=== PATIENT | female | born 1995 | race Hispanic/Latino ===

== ENCOUNTER 2021-04-04 09:18 | Emergency (ER) | payer MEDICAID, SELFPAY ==
--- NOTE | ~2021-04-04 | US_ITS ---
EXAMINATION: US OB <= 14 weeks fetus DATE: 04/04/2021 11:45 INDICATION: Vaginal bleeding in . First trimester. TECHNIQUE: Real-time transabdominal and transvaginal pelvic ultrasound was performed. COMPARISON: None. FINDINGS: TRANSABDOMINAL ULTRASOUND: The uterus measures 11.5 x 4.4 x 5.8 cm. TRANSVAGINAL ULTRASOUND: There is an intrauterine gestational sac. A yolk sac is identified. The fet al crown rump length measures 7 mm, which correlates with an estimated gestational age of 6 weeks and 4 day(s) (+/-) 4 day(s). heart motion is identified measuring 120 beats per minute (bpm) by M- mode Doppler. There is a small subchorionic hematoma measuring 1.3 x 0.5 x 0.8 cm. The right ovary me asures 2.5 x 2.3 x 2.3 cm. The left ovary measures 2.2 x 1.5 x 2.2 cm. There is no free fluid in the pelvis. IMPRESSION: 1. Single living intrauterine gestation with estimated date of delivery of 11/24/2021. 2. Small subchorionic hematoma. Reviewed, dictated and finalized at location A. OR MAINTENANCE TECHNICIAN IMPRESSION: 1. Single living intrauterine gestation with estimated date of delivery of 11/24. 2. Small subchorionic hematoma.
[2021-04-04 09:28] VITALS: BP 137/61; PULSE 75; RESP 20; TEMP 36.8; O2SAT 100
--- NOTE | 2021-04-04 10:00 | ED.FEMALEGU ---
HPI - Female Genitourinary General Chief complaint: KEY ACCOUNT REPRESENTATIVE Stated complaint: 6 wks preg brown discharge Time Seen by Provider: 04/04/21 09:40 History of Present Illness HPI Narrative: Patient is a 25-year-old female who presents ER with concerns for vaginal bleeding in . Reports she has been having some maroon discharge for the last 6 days. Associate with urinary frequency and urgency. No fevers chills or sweats. No lower abdominal cramping or pain. LMP 02/13/2021. She had confirmation of on 03/19/2021 at [facility] at which time they stated she was 4 weeks . Patient is SAB 1. She has not had a confirmatory ultrasound. She follows with Dr. Veloz. Related Data Home Medications Medication Instructions Recorded Confirmed Pre-Kaity Multivitamins/Minerals 04/04/21 04/04/21 Allergies Allergy/AdvReac Type Severity Reaction Status Date / Time No Known Allergies Allergy Verified 04/04/21 09:20 Review of Systems Review of Systems: All systems reviewed & are unremarkable except as noted in HPI and below Constitutional: Constitutional: Denies chills and Denies fatigue Respiratory: Respiratory: Denies cough and Denies dyspnea Gastrointestinal: Gastrointestinal: Denies abdominal pain, Denies nausea and Denies vomiting Genitourinary: Genitourinary: Reports abnormal vaginal bleeding, Reports nocturia, Reports dysuria, Denies pelvic pain and Reports vaginal discharge PMFSH Past Medical History Medical History (Updated 04/04/21 @ 12:51 by Bk Shore MD) Healthy female adult Surgical History Surgical History (Updated 04/04/21 @ 10:03 by Bk Shore MD) No history of previous surgery Social History Social History (Updated 04/04/21 @ 10:03 by Bk Shore MD) Smoking status: Never smoker Exam Narrative: GENERAL: Well-appearing, well-nourished, and in no acute distress. HEAD: Normocephalic, atraumatic. CHEST: Clear to auscultation. No respiratory distress. HEART: Regular rate and rhythm. Normal peripheral pulses. ABDOMEN: Soft, nontender, nondistended. KEY ACCOUNT REPRESENTATIVE: Normal-appearing cervix and vaginal vault with scant old blood. Small amount mucus from cervical os. Cervical os is otherwise closed. No tenderness. Normal external genitalia. EXTREMITIES: Normal range of motion. No edema. SKIN: Warm, dry, no rash. NEURO: Alert and oriented x3. PSYCH: Normal mood and affect. Course Course Emergency Course: Patient informed of diagnosis and treatment plan. Needs follow-up with her OB. Patient's blood type is O+ so no RhoGam is required. Vital Signs Vital signs: Vital Signs Temperature 98.3 F 04/04/21 09:28 Pulse Rate 75 04/04/21 09:28 Respiratory Rate 20 04/04/21 09:28 Blood Pressure 137/61 04/04/21 09:28 Pulse Oximetry 100 04/04/21 09:28 Temperature 98.3 F 04/04/21 09:28 Pulse Rate 75 04/04/21 09:28 Respiratory Rate 20 04/04/21 09:28 Blood Pressure 137/61 04/04/21 09:28 Pulse Oximetry 100 04/04/21 09:28 MDM - Female Genitourinary Lab Data Result diagrams: 04/04/21 10:07 04/04/21 10:07 Labs: Lab Results 04/04/21 04/04/21 04/04/21 Range/Units 10:07 10:07 10:07 WBC 8.0 (4.5-10.0) K/mm3 RBC 4.60 (4.2-5.4) M/mm3 Hgb 13.8 (12.0-15.0) g/dL Hct 39.2 (37.0-47.0) % MCV 85.2 (80-100) fl MCH 30.0 (26-34) pg MCHC 35.2 (32-36) g/dl RDW 12.4 (11.5-14.5) % Plt Count 191 (150-375) k/mm3 MPV 9.7 (7.4-10.4) fl Immature Gran % (Auto) 0.3 (0-0.5) % Neut % (Auto) 59.2 (45.5-73.1) % Lymph % (Auto) 30.7 (18.3-44.2) % [place] % (Auto) 8.3 (2.6-8.5) % Eos % (Auto) 1.1 (0-4.4) % Baso % (Auto) 0.4 (0.2-1.2) % Lymph # (Auto) 2.45 (0.9-3.2) K/mm3 [place] # (Auto) 0.7 H (0.1-0.6) K/mm3 Eos # (Auto) 0.1 (0-0.3) K/mm3 Baso # (Auto) 0.0 (0.0-0.1) K/mm3 Abs Immat Gran (auto) 0.02 (0.00-0.031) K/mm3 Absolute Neuts (a
[2021-04-04 10:23] LABS: Basophils Percent Auto 0.4 % (0.2-1.2); Eosinophils Absolute Auto 0.1 K/mm3 (0-0.3); Eosinophils Percent Auto 1.1 % (0-4.4); Hematocrit 39.2 % (37.0-47.0); Hemoglobin 13.8 g/dL (12.0-15.0); Immature Granulocyte Absolute 0.02 K/mm3 (0.00-0.031); Immature Granulocyte Percent A 0.3 % (0-0.5); Lymphocytes Absolute Auto 2.45 K/mm3 (0.9-3.2); Lymphocytes Percent Auto 30.7 % (18.3-44.2); Mean Corpuscular HGB Conc 35.2 g/dl (32-36); Mean Corpuscular Volume 85.2 fl (80-100); Mean Platelet Volume 9.7 fl (7.4-10.4); Monocytes Absolute Auto 0.7 K/mm3 (0.1-0.6); Monocytes Percent Auto 8.3 % (2.6-8.5); Neutrophils Absolute Auto 4.7 K/mm3 (1.3-6.7); Neutrophils Percent Auto 59.2 % (45.5-73.1); Platelet Count Result 191 k/mm3 (150-375); Red Cell Distribution Width 12.4 % (11.5-14.5)
[2021-04-04 10:35] LABS: Alanine Aminotransferase 51 U/L (4-35); Albumin Level 4.6 g/dL (3.5-5.1); Alkaline Phosphatase 59 U/L (38-126); Anion Gap 9 mmol/L (8-16); Aspartate Amino Transferase 34 U/L (14-36); Bilirubin,Total 0.4 mg/dL (0.2-1.3); Blood Urea Nitrogen 6 mg/dL (7-17); Calcium 9.1 mg/dL (8.4-10.2); Carbon Dioxide 23 mmol/L (22-30); Chloride 102 mmol/L (98-107); Estimated Glomerular Filt Rate > 60; Glucose 80 mg/dL (65-110); Potassium 3.6 mmol/L (3.4-5.0); Sodium 134 mmol/L (137-145)
[2021-04-04 13:05] VITALS: BP 122/67; PULSE 80; RESP 16; O2SAT 99
== END 2021-04-04 13:05 | disposition home or self-care (01) ==
PROVIDERS: Emergency Provider Emergency Medicine
DX: O36.8910 Maternal care for other specified fetal problems, first trimester, not applicable or unspecified (principal); Z3A.01 Less than 8 weeks gestation of pregnancy
CPT/HCPCS: 36415; 76801; 80053; 84702; 85025; 85461; 87070; 87491; 87591; 87808; 99284